=== PATIENT | female | born 1945 | race Caucasian/White ===

== ENCOUNTER 2018-02-17 13:58 | Observation (INO) | payer MEDICARE, BC ==
--- NOTE | 2018-02-17 14:15 | EDM.PDOC ---
ED HPI GENERAL MEDICAL PROBLEM - General Chief Complaint: Neuro Symptoms/Deficits Stated Complaint: [facility] Time Seen by Provider: 02/17/18 13:58 Source of Information: Reports: Patient, EMS History Limitations: Reports: No Limitations - History of Present Illness INITIAL COMMENTS - FREE TEXT/NARRATIVE: The patient is brought by EMS. 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 She denies weakness to either extremity. When she reported to EMS, they felt that the patient had a right facial droop, however, the patient was unaware of any facial abnormality. The patient denies having difficulty in speaking, and EMS did not report that, either. The patient reports having a headache on the left side of her head this morning, which she thought might be sinus related and has largely resolved, and also reports that she developed nausea around the same time that she had the right sided heaviness, around 13:00. EMS gave 4 mg Zofran en route. No other medications were given, and the patient's symptoms largely resolved by the time she arrived to the ED at 13:58. No prior similar symptoms. The patient's PCP is Dr. Black. - Related Data Allergies Allergy/AdvReac Type Severity Reaction Status Date / Time cephalexin [Cephalexin] Allergy Hives Verified 02/17/18 14:07 clindamycin Allergy Hives Verified 02/17/18 14:07 Sulfa (Sulfonamide Allergy Hives Verified 02/17/18 14:07 Antibiotics) Home Meds: Home Meds Thyroid,Pork [Nature-Throid] 65 mg PO DAILY 07/08/16 [History] Past Medical History Musculoskeletal History: Reports: Osteoarthritis Endocrine/Metabolic History: Reports: Hypothyroidism - Past Surgical History HEENT Surgical History: Reports: Tonsillectomy GI Surgical History: Reports: Cholecystectomy Female Surgical History: Reports: D&C (x 1) Musculoskeletal Surgical History: Reports: Knee Replacement (bilateral) Dermatological Surgical History: Reports: Other (See Below) (Lipoma excised from back) Social & Family History - Family History Cardiac: Reports: [place] Other Cardiac Family History: dad from a heart attack at 80 years - Tobacco Use Smoking Status *Q: Never Smoker - Caffeine Use Caffeine Use: Reports: None - Alcohol Use Alcohol Use History: No - Recreational Drug Use Recreational Drug Use: No - Living Situation & Occupation Living situation: Reports: , with Spouse 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 ED EXAM, NEURO - Physical Exam Exam: See Below Exam Limited By: No Limitations General Appearance: Alert, WD/WN, No Apparent Distress Eye Exam: Bilateral Eye: EOMI, Normal Inspection, PERRL Ears: Normal External Exam, Hearing Grossly Normal Nose: Normal Inspection, No Blood Throat/Mouth: Normal Inspection, Normal Lips, Normal Teeth, Normal Gums, Normal Oropharynx, Normal Voice, No Airway Compromise Head Exam: Atraumatic, Normocephalic Neck: Normal Inspection, Full Range of Motion Respiratory/Chest: No Respiratory Distress, Lungs Clear, Normal Breath Sounds, No Accessory Muscle Use Cardiovascular: Normal Peripheral Pulses, Regular Rate, Rhythm, No Edema, No Gallop, No JVD, No Murmur, No Rub GI/Abdominal: Normal Bowel Sounds, Soft, Non-Tender, No Organomegaly, No Distention, No Abnormal Bruit, No Mass (Female) Exam: Deferred Rectal (Female) Exam: Deferred Neurological: Alert, Normal Dorsiflexion, CN II-XII Intact, Normal Plantar Flexion, Normal Gait (when asked to ambulate the halls), No Motor/Sensory Deficits, Oriented x 3 Back Exam: Normal Inspection, Full Range of Motion, NT Extremities: Normal Inspection, Normal Range of Motion, No Pedal Edema, Normal Capillary Refill Psychiatric: Normal Affect Skin Exam: Warm, Dry, Intact, Normal Color, No Rash EKG INTERPRETATION EKG Date: 02/17/18 Time: 14:16 Rhythm: NSR Rate (Beats/Min): 82 [place]: Normal P-Wave: Present QRS: Normal ST-T: Normal QT: Normal Comparison: No Change (07/08/2016) Course - Vital Signs Last Recorded V/S: Last Vital Signs Temp 36.9 C 02/17/18 14:01 Pulse 85 02/17/18 14:01 Resp 18 02/17/18 14:01 BP 145/90 H 02/17/18 14:01 Pulse Ox 98 02/17/18 14:01 - Orders/Labs/Meds Orders: Active Orders 24 hr Category Date Time Status Accu Check [Blood Glucose Check, Bedside] [RC] ONETIME Care 02/17/18 14:08 Active EKG Documentation Completion [RC] STAT Care 02/17/18 14:09 Active Labs: Laboratory Tests 02/17/18 02/17/18 02/17/18 Range/Units 14:02 14:12 14:12 WBC 4.08 (3.98-10.04) K/mm3 RBC 5.09 (3.98-5.22) M/mm3 Hgb 14.2 (11.2-15.7) gm/L Hct 44.4 (34.1-44.9) % MCV 87.2 (79.4-94.8) fl MCH 27.9 (25.6-32.2) pg MCHC 32.0 L (32.2-35.5) g/dl RDW Std Deviation 45.2 (36.4-46.3) fL Plt Count 191 (182-369) K/mm3 MPV 8.7 L (9.4-12.3) fl Neutrophils % (Manual) 56 (40-60) % Band Neutrophils % 0 (0-10) % Lymphocytes % (Manual) 28 (20-40) % Atypical Lymphs % 5 % Monocytes % (Manual) 11 H (2-10) % Eosinophils % (Manual) 0 L (0.7-5.8) % Basophils % (Manual) 0 L (0.1-1.2) Platelet Estimate Adequate Plt Morphology Comment Normal RBC Morph Comment Normal PT (9.5-12.1) SECONDS INR APTT (24-31) SECONDS Sodium 145 (136-145) mEq/L Potassium 4.3 (3.5-5.1) mEq/L Chloride 110 H (98-107) mEq/L Carbon Dioxide 26 (21-32) mEq/L Anion Gap 13.3 (5-15) BUN 19 H (7-18) mg/dL Creatinine 0.7 (0.55-1.02) mg/dL Est Cr Clr Drug Dosing TNP Estimated GFR (MDRD) > 60 (>60) mL/min BUN/Creatinine Ratio 27.1 H (14-18) Glucose 101 (83-115) mg/dL POC Glucose 90 (83-110) mg/dL Calcium 8.8 (8.5-10.1) mg/dL Total Bilirubin 0.9 (0.2-1.0) mg/dL AST 20 (15-37) U/L ALT 25 (14-59) U/L Alkaline Phosphatase 53 (46-116) U/L Total Protein 6.2 L (6.4-8.2) g/dl Albumin 3.6 (3.4-5.0) g/dl Globulin 2.6 gm/dL Albumin/Globulin Ratio 1.4 (1-2) // Range/Units 14:12 WBC (3.98-10.04) K/mm3 RBC (3.98-5.22) M/mm3 Hgb (11.2-15.7) gm/L Hct (34.1-44.9) % MCV (79.4-94.8) fl MCH (25.6-32.2) pg MCHC (32.2-35.5) g/dl RDW Std Deviation (36.4-46.3) fL Plt Count (182-369) K/mm3 MPV (9.4-12.3) fl Neutrophils % (Manual) (40-60) % Band Neutrophils % (0-10) % Lymphocytes % (Manual) (20-40) % Atypical Lymphs % % Monocytes % (Manual) (2-10) % Eosinophils % (Manual) (0.7-5.8) % Basophils % (Manual) (0.1-1.2) Platelet Estimate Plt Morphology Comment RBC Morph Comment PT 10.7 (9.5-12.1) SECONDS INR 0.98 APTT 28 (24-31) SECONDS Sodium (136-145) mEq/L Potassium (3.5-5.1) mEq/L Chloride (98-107) mEq/L Carbon Dioxide (21-32) mEq/L Anion Gap (5-15) BUN (7-18) mg/dL Creatinine (0.55-1.02) mg/dL Est Cr Clr Drug Dosing Estimated GFR (MDRD) (>60) mL/min BUN/Creatinine Ratio (14-18) Glucose (83-115) mg/dL POC Glucose (83-110) mg/dL Calcium (8.5-10.1) mg/dL Total Bilirubin (0.2-1.0) mg/dL AST (15-37) U/L ALT (14-59) U/L Alkaline Phosphatase (46-116) U/L Total Protein (6.4-8.2) g/dl Albumin (3.4-5.0) g/dl Globulin gm/dL Albumin/Globulin Ratio (1-2) Meds: Medications Discontinued Medications Generic Name Dose Route Start Last Admin Trade Name Vikas PRN Reason Stop Dose Admin Aspirin 81 mg 02/17/18 14:41 02/17/18 14:52 Aspirin PO 02/17/18 14:42 81 mg ONETIME ONE Administration - Re-Assessments/Exams Free Text/Narrative Re-Assessment/Exam: 02/17/18 14:27 CT of the head without contrast is read by Dr. Santizo as: 1. Mild senescent change as described above. No acute abnormality is appreciated on noncontrast head CT study. 02/17/18 14:[address] images have been pushed to [facility]. 02/17/18 15:00 Our RN's calculated the patient's NIH stroke score as 1, for RLE leg drift. Case discussed with [facility] One Call at 14:34. Case then discussed with Dr. Sampson, Stroke-Neurologist at [facility], at 14: 38. The fact that the patient had a headache raises a suspicion that the patient 's episode is due to a migraine, however, he recommends conservative management with treating the patient as if she had a TIA. He does not recommend TPA, as the patient is currently asymptomatic. He recommends, however, that we start the patient on a baby aspirin, and admit her for a MRA of the head and neck, a MRI of the head, an echocardiogram, telemetry, and check lipids and a hemoglobin A1c. He does not feel that she needs to be transported to [place]. The above was relayed to the patient and her family. The patient expressed some concern about the MRI, as she is claustrophobic, but agreed to being admitted. Case then discussed with Dr. Schwartz at 14:53. He accepts the patient for observation. Departure - Departure Time of Disposition: 14:55 Disposition: Refer to Observation Condition: Good Clinical Impression: Transient ischemic attack - Discharge Information - My Orders Last 24 Hours: My Active Orders 02/17/18 14:08 Accu Check [Blood Glucose Check, Bedside] [RC] ONETIME 02/17/18 14:09 EKG Documentation Completion [RC] STAT - Assessment/Plan Last 24 Hours: My Active Orders 02/17/18 14:08 Accu Check [Blood Glucose Check, Bedside] [RC] ONETIME 02/17/18 14:09 EKG Documentation Completion [RC] STAT
--- NOTE | 2018-02-17 14:23 | CT ---
Head CT Technique: Multiple axial sections through the brain were obtained. Intravenous contrast was not utilized. Comparison: No prior intracranial imaging is available. Findings: Ventricles along the basal cisterns and sulci over convexities are within normal limits for the patient's age. Very minimal areas of diminished density is noted within periventricular white matter compatible with small vessel ischemic demyelination change. No other abnormal parenchymal densities are seen. No evidence of intracranial hemorrhage. No midline shift or mass effect is seen. Bone window settings were reviewed which shows no acute calvarial abnormality. Visualized sinuses are clear. Impression: 1. Mild senescent change as described above. No acute abnormality is appreciated on noncontrast head CT study. Diagnostic code #2
[2018-02-17] MEDS ORDERED: Aspirin 81 MG Tab.Chew PO ONE (14:41)
--- NOTE | 2018-02-17 16:46 | PCM.HP ---
H&P History of Present Illness - General Date of Service: 02/17/18 Admit Problem/Dx: Admission Diagnosis/Problem Admission Diagnosis/Problem TIA, Transient ischemic attack Source of Information: Patient, Family, Old Records, Provider History Limitations: Reports: No Limitations - History of Present Illness Initial Comments - Free Text/Narative: HPI: This is a 73 yo female with past medical h/o hypothyroidism who comes in for possible TIA. She had a "heavy sensation" in the right upper and lower extremities, possible right facial droop per EMS, and left-sided headache with nausea. Currently she reports no weakness, headache, nausea, vomiting, chest pain, shortness of breath, or GI/ complaints. Never a smoker. Her symptoms improved after receiving Zofran in the ambulance on her way to the ED. Her initial workup in the ED showed an unremarkable CBC. Her coagulation study shows PT of 10.7, INR of 0.98, APTT of 28. Her chemistry is remarkable for Cl 110, BUN 19, Total Protein 6.2. EKG was normal. CT of the head showed mild senescent change, no acute abnormality. She is subsequently admitted to the medical floor. She is a full code. Her PCP is Dr. Bentley Black. - Related Data Allergies/Adverse Reactions: Allergies Allergy/AdvReac Type Severity Reaction Status Date / Time cephalexin [Cephalexin] Allergy Hives Verified 02/17/18 14:07 clindamycin Allergy Hives Verified 02/17/18 14:07 Sulfa (Sulfonamide Allergy Hives Verified 02/17/18 14:07 Antibiotics) Home Medications: Home Meds Thyroid,Pork [Nature-Throid] 65 mg PO DAILY 07/08/16 [History] Past Medical History - Past Health History Medical/Surgical History: Denies Medical/Surgical History Cardiovascular History: Reports: None Respiratory History: Reports: None Gastrointestinal History: Reports: None Genitourinary History: Reports: None SENIOR INFORMATION SECURITY 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 History: Reports: None Musculoskeletal History: Reports: Osteoarthritis Neurological History: Reports: None Psychiatric History: Reports: None Endocrine/Metabolic History: Reports: Hypothyroidism Hematologic History: Reports: None Immunologic History: Reports: None Oncologic (Cancer) History: Reports: None Dermatologic History: Reports: None - Infectious Disease History Infectious Disease History: Reports: None - Past Surgical History HEENT Surgical History: Reports: Tonsillectomy GI Surgical History: Reports: Cholecystectomy Female Surgical History: Reports: D&C (x 1) Musculoskeletal Surgical History: Reports: Knee Replacement (bilateral) Dermatological Surgical History: Reports: Other (See Below) (Lipoma excised from back) Social & Family History - Family History Cardiac: Reports: [place] Other Cardiac Family History: dad from a heart attack at 80 years - Tobacco Use Smoking Status *Q: Never Smoker - Caffeine Use Caffeine Use: Reports: None - Recreational Drug Use Recreational Drug Use: No - Living Situation & Occupation Living situation: Reports: , with Spouse Occupation: Employed ([employer]) H&P Review of Systems - Review of Systems: Review Of Systems: See Below General: Reports: No Symptoms. Denies: Weakness HEENT: Reports: No Symptoms. Denies: Visual Changes Pulmonary: Reports: No Symptoms. Denies: Shortness of Breath Cardiovascular: Reports: Edema (minor swelling in bilateral extremities). Denies: Chest Pain, Palpitations, Lightheadedness, Syncope, Claudication, Blood Pressure Problem Gastrointestinal: Reports: No Symptoms. Denies: Difficulty Swallowing, Nausea, Vomiting Genitourinary: Reports: No Symptoms Musculoskeletal: Reports: No Symptoms, Leg Pain (Right leg x 3 days) Skin: Reports: No Symptoms, Other (varicose vein on Right leg) Psychiatric: Reports: No Symptoms. Denies: Confusion Neurological: Reports: No Symptoms. Denies: Confusion, Dizziness, Headache, Numbness, Paresthesia, Syncope, Trouble Speaking, Weakness, Change in Speech, Gait Disturbance Hematologic/Lymphatic: Reports: No Symptoms Immunologic: Reports: No Symptoms Exam - Exam Exam: See Below - Vital Signs Vital Signs: Last Vital Signs Temp 97.5 F 02/17/18 15:58 Pulse 77 02/17/18 15:58 Resp 16 02/17/18 15:58 BP 147/92 H 02/17/18 15:58 Pulse Ox 98 02/17/18 15:58 Weight: 191 lb 14.4 oz - Exam Quality Assessment: DVT Prophylaxis General: Alert, Oriented, Cooperative, Mild Distress HEENT: PERRLA, Hearing Intact, Mucosa Moist & [place], Nares Patent, Normal Nasal Septum, Posterior Pharynx Clear, Conjunctiva Clear, EOMI, EACs Clear, TMs Clear Neck: Supple, Trachea Midline, 2 Lungs: Clear to Auscultation, Normal Respiratory Effort Cardiovascular: Regular Rate, Regular Rhythm GI/Abdominal Exam: Normal Bowel Sounds, Soft, Non-Tender, No Organomegaly, No Distention, No Abnormal Bruit, No Mass, Pelvis Stable (Female) Exam: Deferred Rectal (Female) Exam: Deferred Back Exam: Normal Inspection, Full Range of Motion, NT Extremities: Normal Inspection, Normal Range of Motion, Non-Tender, Normal Capillary Refill, Pedal Edema (1+ bilaterally), Other (varicose vein on Right leg) Peripheral Pulses: 3+: Posterior Tibial (L), Posterior Tibial (R), Dorsalis Pedis (L), Dorsalis Pedis (R) Skin: Warm, Dry, Intact Neurological: Cranial Nerves Intact (grossly), Strength Equal Bilateral, Normal Gait, Normal Speech, Sensation Intact Neuro Extensive - Mental Status: Alert, Oriented x3, Normal Mood/Affect, Normal Cognition, Memory Intact Neuro Extensive - Motor, Sensory, Reflexes: CN II-XII Intact, Normal Gait, Normal Reflexes Psychiatric: Alert, Normal Affect, Normal Mood - Patient Data Lab Results Last 24 hrs: Laboratory Results - last 24 hr 02/17/18 02/17/18 02/17/18 Range/Units 14:02 14:12 14:12 WBC 4.08 (3.98-10.04) K/mm3 RBC 5.09 (3.98-5.22) M/mm3 Hgb 14.2 (11.2-15.7) gm/L Hct 44.4 (34.1-44.9) % MCV 87.2 (79.4-94.8) fl MCH 27.9 (25.6-32.2) pg MCHC 32.0 L (32.2-35.5) g/dl RDW Std Deviation 45.2 (36.4-46.3) fL Plt Count 191 (182-369) K/mm3 MPV 8.7 L (9.4-12.3) fl Neutrophils % (Manual) 56 (40-60) % Band Neutrophils % 0 (0-10) % Lymphocytes % (Manual) 28 (20-40) % Atypical Lymphs % 5 % Monocytes % (Manual) 11 H (2-10) % Eosinophils % (Manual) 0 L (0.7-5.8) % Basophils % (Manual) 0 L (0.1-1.2) Platelet Estimate Adequate Plt Morphology Comment Normal RBC Morph Comment Normal PT (9.5-12.1) SECONDS INR APTT (24-31) SECONDS Sodium 145 (136-145) mEq/L Potassium 4.3 (3.5-5.1) mEq/L Chloride 110 H (98-107) mEq/L Carbon Dioxide 26 (21-32) mEq/L Anion Gap 13.3 (5-15) BUN 19 H (7-18) mg/dL Creatinine 0.7 (0.55-1.02) mg/dL Est Cr Clr Drug Dosing TNP Estimated GFR (MDRD) > 60 (>60) mL/min BUN/Creatinine Ratio 27.1 H (14-18) Glucose 101 (83-115) mg/dL POC Glucose 90 (83-110) mg/dL Calcium 8.8 (8.5-10.1) mg/dL Total Bilirubin 0.9 (0.2-1.0) mg/dL AST 20 (15-37) U/L ALT 25 (14-59) U/L Alkaline Phosphatase 53 (46-116) U/L Total Protein 6.2 L (6.4-8.2) g/dl Albumin 3.6 (3.4-5.0) g/dl Globulin 2.6 gm/dL Albumin/Globulin Ratio 1.4 (1-2) // Range/Units 14:12 WBC (3.98-10.04) K/mm3 RBC (3.98-5.22) M/mm3 Hgb (11.2-15.7) gm/L Hct (34.1-44.9) % MCV (79.4-94.8) fl MCH (25.6-32.2) pg MCHC (32.2-35.5) g/dl RDW Std Deviation (36.4-46.3) fL Plt Count (182-369) K/mm3 MPV (9.4-12.3) fl Neutrophils % (Manual) (40-60) % Band Neutrophils % (0-10) % Lymphocytes % (Manual) (20-40) % Atypical Lymphs % % Monocytes % (Manual) (2-10) % Eosinophils % (Manual) (0.7-5.8) % Basophils % (Manual) (0.1-1.2) Platelet Estimate Plt Morphology Comment RBC Morph Comment PT 10.7 (9.5-12.1) SECONDS INR 0.98 APTT 28 (24-31) SECONDS Sodium (136-145) mEq/L Potassium (3.5-5.1) mEq/L Chloride (98-107) mEq/L Carbon Dioxide (21-32) mEq/L Anion Gap (5-15) BUN (7-18) mg/dL Creatinine (0.55-1.02) mg/dL Est Cr Clr Drug Dosing Estimated GFR (MDRD) (>60) mL/min BUN/Creatinine Ratio (14-18) Glucose (83-115) mg/dL POC Glucose (83-110) mg/dL Calcium (8.5-10.1) mg/dL Total Bilirubin (0.2-1.0) mg/dL AST (15-37) U/L ALT (14-59) U/L Alkaline Phosphatase (46-116) U/L Total Protein (6.4-8.2) g/dl Albumin (3.4-5.0) g/dl Globulin gm/dL Albumin/Globulin Ratio (1-2) Result Diagrams: 02/17/18 14:12 02/17/18 14:12 - Problem List (1) Transient ischemic attack SNOMED Code(s): 196148254 ICD Code: G45.9 - TRANSIENT CEREBRAL ISCHEMIC ATTACK, UNSPECIFIED Status: Acute Priority: High Current Visit: Yes Qualifiers: Transient cerebral ischemia type: unspecified Qualified Code(s): G45.9 - Transient cerebral ischemic attack, unspecified (2) Hypothyroidism SNOMED Code(s): 24525429 ICD Code: E03.9 - HYPOTHYROIDISM, UNSPECIFIED Status: Chronic Priority: Low Current Visit: Yes Qualifiers: Hypothyroidism type: unspecified Qualified Code(s): E03.9 - Hypothyroidism , unspecified (3) Venous insufficiency of lower extremity SNOMED Code(s): 379053132 ICD Code: I87.2 - VENOUS INSUFFICIENCY (CHRONIC) (PERIPHERAL) Status: Chronic Priority: Low Current Visit: Yes Qualifiers: Laterality: unspecified laterality Qualified Code(s): I87.2 - Venous insufficiency (chronic) (peripheral) Problem List Initiated/Reviewed/Updated: Yes Orders Last 24hrs: Active Orders 24 hr Category Date Time Status Admission Status [Patient Status] [ADT] Routine ADT 02/17/18 15:37 Active Accu Check [Blood Glucose Check, Bedside] [RC] ONETIME Care 02/17/18 14:08 Active EKG Documentation Completion [RC] STAT Care 02/17/18 14:09 Active Regular Diet [DIET] Diet 02/17/18 Dinner Active Code Status [Resuscitation Status] Routine Resus Stat 02/17/18 16:05 Ordered Assessment/Plan Comment:: I/P: Acute: Suspected TIA -Risk factors: HTN in ED (147/) -1st episode, "heavy sensation" in RUE + RLE, possible R facial droop per EMS , nausea, L sided headache -Symptoms resolved <1 hour -NIH score 0; ABCD2 score 5= moderate risk of stroke -EKG in ED--> normal -CT Head in ED--> mild senescent change, no acute abnormality -Cardiac Monitoring to r/o Afib -2D echo in AM -MRI and MRA of head and neck -Lipid panel -ASA 81mg started in ED--> continue -Consider statin if lipids elevated Chronic: Venous Insufficiency -Varicose vein on right leg Hypothyroidism Osteoarthritis Plan: Transfered to Med-Surg today on telemetry She remains stable and continues to improve clinically Other orders as indicated above Routine AM labs Heart Healthy Diet PT/OT DVT Prophylaxis: ASA, MAGO, SCD GI Prophylaxis: Pepcid Ambulated as tolerated Code Status: Full code; PCP: Sofia
[2018-02-17] MEDS ORDERED: HYDROmorphone 0.5 MG/0.5 ML SYRINGE IVPUSH PRN (17:13)
[2018-02-17] MEDS ORDERED: Magnesium Hydroxide 400 MG/5 ML Susp 30 ML Cup PO PRN (17:13)
[2018-02-17] MEDS ORDERED: Ondansetron 4 MG Tab.DIS PO PRN (17:13)
[2018-02-17] MEDS ORDERED: Ondansetron 4 MG/2 ML SDV IV PRN (17:13)
[2018-02-17] MEDS ORDERED: Acetaminophen 325 MG Tab PO PRN (17:13)
[2018-02-17] MEDS ORDERED: Acetaminophen/HYDROcodone 325-5 MG Tab PO PRN (17:13)
[2018-02-17] MEDS ORDERED: Bisacodyl 5 MG Tab PO PRN (17:13)
[2018-02-17] MEDS ORDERED: Temazepam 7.5 MG Cap PO PRN (17:13)
[2018-02-17] MEDS ORDERED: Polyethylene Glycol 3350 Powder 17 GM Packet PO PRN (17:13)
[2018-02-17] MEDS ORDERED: Docusate Sodium 100 MG Cap PO PRN (17:13)
[2018-02-18] MEDS ORDERED: Sodium Chloride 0.9% 500 ML IV ONE ×2 (07:30→08:00)
[2018-02-18] MEDS ORDERED: Aspirin 81 MG Tab.Chew PO SCH (09:00)
[2018-02-18] MEDS ORDERED: Thyroid 60 MG Tab PO SCH (09:00)
[2018-02-18] MEDS ORDERED: NATURE THROID 65 MG PO SCH (09:00)
[2018-02-18] MEDS ORDERED: Sodium Chloride 0.9% 10 ML Syringe FLUSH PRN (10:45)
[2018-02-18] MEDS ORDERED: Gadobenate Dimeglumine 529 MG/ML 20 ML SDV IVPUSH ONE (10:45)
--- NOTE | 2018-02-18 11:47 | PCM.PN ---
- General Info Date of Service: 02/18/18 Admission Dx/Problem (Free Text): Admission Diagnosis/Problem Admission Diagnosis/Problem TIA, Transient ischemic attack Subjective Update: In to see Monica today. She is sitting up in bed eating breakfast. Overall she is doing quite well. I explained that her labs are looking good so far and that we are now just waiting for her imaging results. She does complain of some right ear pain and jaw pain. Troponin was negative. I checked her ear with an otoscope and reassured her the ear looked normal. I also palpated her jaw and she had no pain, but was tender to palpation on her submandibular lymph nodes. However, the lymph nodes are not swollen at this time. She has been sleeping well. Good appetite. Ambulating. Pain is controlled. No weakness, dizziness, confusion, headache, nausea or vomiting. Urinating. No concerns from nursing. She will most likely be DCd back home tomorrow pending MRI and MRA results, PT/ OT recommendation, and clinical disposition. Functional Status: Reports: Pain Controlled, Tolerating Diet, Ambulating, Urinating - Review of Systems General: Reports: No Symptoms. Denies: Fever, Weakness, Chills HEENT: Reports: Ear Pain (right ear), Other (jaw pain). Denies: Headaches, Sore Throat, Visual Changes Pulmonary: Reports: No Symptoms. Denies: Shortness of Breath, Cough Cardiovascular: Reports: Edema (bilateral R>L). Denies: Chest Pain, Palpitations, Dyspnea on Exertion Gastrointestinal: Reports: No Symptoms. Denies: Abdominal Pain, Constipation, Diarrhea, Nausea, Vomiting Genitourinary: Reports: No Symptoms. Denies: Dysuria, Frequency, Burning, Pain , Urgency Musculoskeletal: Reports: No Symptoms. Denies: Leg Pain Skin: Reports: No Symptoms Neurological: Reports: No Symptoms. Denies: Confusion, Dizziness, Headache, Numbness, Paresthesia, Seizure, Syncope, Tingling, Trouble Speaking, Difficulty Walking, Weakness, Change in Speech Psychiatric: Reports: No Symptoms. Denies: Confusion - Patient Data Vitals - Most Recent: Last Vital Signs Temp 98.4 F 02/18/18 08:19 Pulse 73 02/18/18 08:19 Resp 16 02/18/18 08:19 BP 129/88 02/18/18 08:19 Pulse Ox 95 02/18/18 08:19 Weight - Most Recent: 187 lb 14.4 oz I&O - Last 24 Hours: Intake & Output 02/17/18 02/18/18 02/18/18 22:59 06:59 14:59 Intake Total 360 500 120 Output Total 450 Balance 360 50 120 Lab Results Last 24 Hours: Laboratory Results - last 24 hr 02/17/18 02/17/18 02/17/18 Range/Units 14:02 14:12 14:12 WBC 4.08 (3.98-10.04) K/mm3 RBC 5.09 (3.98-5.22) M/mm3 Hgb 14.2 (11.2-15.7) gm/L Hct 44.4 (34.1-44.9) % MCV 87.2 (79.4-94.8) fl MCH 27.9 (25.6-32.2) pg MCHC 32.0 L (32.2-35.5) g/dl RDW Std Deviation 45.2 (36.4-46.3) fL Plt Count 191 (182-369) K/mm3 MPV 8.7 L (9.4-12.3) fl Neut % (Auto) (34.0-71.1) % Lymph % (Auto) (19.3-51.7) % [place] % (Auto) (4.7-12.5) % Eos % (Auto) (0.7-5.8) Baso % (Auto) (0.1-1.2) % Neut # (Auto) (1.56-6.13) K/mm3 Lymph # (Auto) (1.18-3.74) K/mm3 [place] # (Auto) (0.24-0.36) K/mm3 Eos # (Auto) (0.04-0.36) K/mm3 Baso # (Auto) (0.01-0.08) K/mm3 Neutrophils % (Manual) 56 (40-60) % Band Neutrophils % 0 (0-10) % Lymphocytes % (Manual) 28 (20-40) % Atypical Lymphs % 5 % Monocytes % (Manual) 11 H (2-10) % Eosinophils % (Manual) 0 L (0.7-5.8) % Basophils % (Manual) 0 L (0.1-1.2) Platelet Estimate Adequate Plt Morphology Comment Normal RBC Morph Comment Normal PT (9.5-12.1) SECONDS INR APTT (24-31) SECONDS Sodium 145 (136-145) mEq/L Potassium 4.3 (3.5-5.1) mEq/L Chloride 110 H (98-107) mEq/L Carbon Dioxide 26 (21-32) mEq/L Anion Gap 13.3 (5-15) BUN 19 H (7-18) mg/dL Creatinine 0.7 (0.55-1.02) mg/dL Est Cr Clr Drug Dosing TNP Estimated GFR (MDRD) > 60 (>60) mL/min BUN/Creatinine Ratio 27.1 H (14-18) Glucose 101 (83-115) mg/dL POC Glucose 90 (83-110) mg/dL Hemoglobin A1c (4.50-6.20) % Calcium 8.8 (8.5-10.1) mg/dL Magnesium (1.8-2.4) mg/dl Total Bilirubin 0.9 (0.2-1.0) mg/dL AST 20 (15-37) U/L ALT 25 (14-59) U/L Alkaline Phosphatase 53 (46-116) U/L Troponin I (0.00-0.056) ng/mL NT-Pro-B Natriuret Pep (0-125) pg/mL Total Protein 6.2 L (6.4-8.2) g/dl Albumin 3.6 (3.4-5.0) g/dl Globulin 2.6 gm/dL Albumin/Globulin Ratio 1.4 (1-2) Triglycerides (<150) mg/dL Cholesterol (<200) mg/dL LDL Cholesterol Direct (<100) mg/dL HDL Cholesterol (40-59) mg/dL Free T4 (0.76-1.46) ng/dL TSH 3rd Generation (0.358-3.74) uIU/mL 02/17/18 02/17/18 02/18/18 Range/Units 14:12 14:12 06:00 WBC 3.30 L (3.98-10.04) K/mm3 RBC 4.89 (3.98-5.22) M/mm3 Hgb 14.1 (11.2-15.7) gm/L Hct 42.8 (34.1-44.9) % MCV 87.5 (79.4-94.8) fl MCH 28.8 (25.6-32.2) pg MCHC 32.9 (32.2-35.5) g/dl RDW Std Deviation 45.1 (36.4-46.3) fL Plt Count 164 L (182-369) K/mm3 MPV 9.1 L (9.4-12.3) fl Neut % (Auto) 46.7 (34.0-71.1) % Lymph % (Auto) 37.3 (19.3-51.7) % [place] % (Auto) 12.4 (4.7-12.5) % Eos % (Auto) 3.3 (0.7-5.8) Baso % (Auto) 0.3 (0.1-1.2) % Neut # (Auto) 1.54 L (1.56-6.13) K/mm3 Lymph # (Auto) 1.23 (1.18-3.74) K/mm3 [place] # (Auto) 0.41 H (0.24-0.36) K/mm3 Eos # (Auto) 0.11 (0.04-0.36) K/mm3 Baso # (Auto) 0.01 (0.01-0.08) K/mm3 Neutrophils % (Manual) (40-60) % Band Neutrophils % (0-10) % Lymphocytes % (Manual) (20-40) % Atypical Lymphs % % Monocytes % (Manual) (2-10) % Eosinophils % (Manual) (0.7-5.8) % Basophils % (Manual) (0.1-1.2) Platelet Estimate Plt Morphology Comment RBC Morph Comment PT 10.7 (9.5-12.1) SECONDS INR 0.98 APTT 28 (24-31) SECONDS Sodium (136-145) mEq/L Potassium (3.5-5.1) mEq/L Chloride (98-107) mEq/L Carbon Dioxide (21-32) mEq/L Anion Gap (5-15) BUN (7-18) mg/dL Creatinine (0.55-1.02) mg/dL Est Cr Clr Drug Dosing Estimated GFR (MDRD) (>60) mL/min BUN/Creatinine Ratio (14-18) Glucose (83-115) mg/dL POC Glucose (83-110) mg/dL Hemoglobin A1c (4.50-6.20) % Calcium (8.5-10.1) mg/dL Magnesium 2.3 (1.8-2.4) mg/dl Total Bilirubin (0.2-1.0) mg/dL AST (15-37) U/L ALT (14-59) U/L Alkaline Phosphatase (46-116) U/L Troponin I (0.00-0.056) ng/mL NT-Pro-B Natriuret Pep (0-125) pg/mL Total Protein (6.4-8.2) g/dl Albumin (3.4-5.0) g/dl Globulin gm/dL Albumin/Globulin Ratio (1-2) Triglycerides (<150) mg/dL Cholesterol (<200) mg/dL LDL Cholesterol Direct (<100) mg/dL HDL Cholesterol (40-59) mg/dL Free T4 (0.76-1.46) ng/dL TSH 3rd Generation (0.358-3.74) uIU/mL 02/18/18 02/18/18 02/18/18 Range/Units 06:00 06:00 06:00 WBC (3.98-10.04) K/mm3 RBC (3.98-5.22) M/mm3 Hgb (11.2-15.7) gm/L Hct (34.1-44.9) % MCV (79.4-94.8) fl MCH (25.6-32.2) pg MCHC (32.2-35.5) g/dl RDW Std Deviation (36.4-46.3) fL Plt Count (182-369) K/mm3 MPV (9.4-12.3) fl Neut % (Auto) (34.0-71.1) % Lymph % (Auto) (19.3-51.7) % [place] % (Auto) (4.7-12.5) % Eos % (Auto) (0.7-5.8) Baso % (Auto) (0.1-1.2) % Neut # (Auto) (1.56-6.13) K/mm3 Lymph # (Auto) (1.18-3.74) K/mm3 [place] # (Auto) (0.24-0.36) K/mm3 Eos # (Auto) (0.04-0.36) K/mm3 Baso # (Auto) (0.01-0.08) K/mm3 Neutrophils % (Manual) (40-60) % Band Neutrophils % (0-10) % Lymphocytes % (Manual) (20-40) % Atypical Lymphs % % Monocytes % (Manual) (2-10) % Eosinophils % (Manual) (0.7-5.8) % Basophils % (Manual) (0.1-1.2) Platelet Estimate Plt Morphology Comment RBC Morph Comment PT (9.5-12.1) SECONDS INR APTT (24-31) SECONDS Sodium 142 (136-145) mEq/L Potassium 3.7 (3.5-5.1) mEq/L Chloride 110 H (98-107) mEq/L Carbon Dioxide 25 (21-32) mEq/L Anion Gap 10.7 (5-15) BUN 14 (7-18) mg/dL Creatinine 0.8 (0.55-1.02) mg/dL Est Cr Clr Drug Dosing 60.38 Estimated GFR (MDRD) > 60 (>60) mL/min BUN/Creatinine Ratio 17.5 (14-18) Glucose 108 (83-115) mg/dL POC Glucose (83-110) mg/dL Hemoglobin A1c 5.30 (4.50-6.20) % Calcium 8.7 (8.5-10.1) mg/dL Magnesium (1.8-2.4) mg/dl Total Bilirubin (0.2-1.0) mg/dL AST (15-37) U/L ALT (14-59) U/L Alkaline Phosphatase (46-116) U/L Troponin I < 0.017 (0.00-0.056) ng/mL NT-Pro-B Natriuret Pep 72 (0-125) pg/mL Total Protein (6.4-8.2) g/dl Albumin (3.4-5.0) g/dl Globulin gm/dL Albumin/Globulin Ratio (1-2) Triglycerides 43 (<150) mg/dL Cholesterol 162 (<200) mg/dL LDL Cholesterol Direct 102 H* (<100) mg/dL HDL Cholesterol 55.0 (40-59) mg/dL Free T4 0.77 (0.76-1.46) ng/dL TSH 3rd Generation 3.144 (0.358-3.74) uIU/mL Med Orders - Current: Current Medications Acetaminophen (Tylenol) 650 mg PO Q4H PRN PRN Reason: Pain (Mild 1-3)/fever Last Admin: 02/18/18 04:05 Dose: 650 mg Hydrocodone Bitart/Acetaminophen ([place] 325-5 Mg) 1 tab PO Q4H PRN PRN Reason: Pain (moderate 4-6) Aspirin (Aspirin) 81 mg PO DAILY [facility] Last Admin: 02/18/18 08:19 Dose: 81 mg Bisacodyl (Dulcolax) 5 mg PO DAILY PRN PRN Reason: Constipation Docusate Sodium (Colace) 100 mg PO BID PRN PRN Reason: Constipation Hydromorphone HCl (Dilaudid) 0.25 mg IVPUSH Q2H PRN PRN Reason: Pain (severe 7-10) Magnesium Hydroxide (Milk Of Magnesia) 30 ml PO Q12H PRN PRN Reason: Constipation Ondansetron HCl (Zofran Odt) 4 mg PO Q4H PRN PRN Reason: nausea, able to take PO Ondansetron HCl (Zofran) 4 mg IV Q4H PRN PRN Reason: Nausea/Vomiting Nature-Throid 65 Mg 0 each PO DAILY [facility] Last Admin: 02/18/18 08:42 Dose: 1 each Polyethylene Glycol (Miralax) 17 gm PO DAILY PRN PRN Reason: Constipation Senna/Docusate Sodium (Senna Plus) 1 tab PO BID PRN PRN Reason: Constipation Sodium Chloride (Saline Flush) 10 ml FLUSH ONETIME PRN PRN Reason: Keep Vein Open Last Admin: 02/18/18 10:48 Dose: 10 ml Temazepam (Restoril) 7.5 mg PO BEDTIME PRN PRN Reason: Sleep Discontinued Medications Aspirin (Aspirin) 81 mg PO ONETIME ONE Stop: 02/17/18 14:42 Last Admin: 02/17/18 14:52 Dose: 81 mg Gadobenate Dimeglumine (Multihance) 20 ml IVPUSH ONETIME ONE Stop: 02/18/18 10:46 Last Admin: 02/18/18 10:48 Dose: 20 ml Sodium Chloride (Normal Saline) 500 mls @ 999 mls/hr IV ONETIME ONE Stop: 02/18/18 08:00 Sodium Chloride (Normal Saline) 500 mls @ 999 mls/hr IV ONETIME ONE Stop: 02/18/18 08:30 Last Admin: 02/18/18 08:13 Dose: 999 mls/hr Thyroid (Cynthia Thyroid) 60 mg PO DAILY JOSE MARIA - Exam Quality Assessment: DVT Prophylaxis General: Alert, Oriented, Cooperative, No Acute Distress HEENT: Pupils Equal, Pupils Reactive, EOMI, Mucous Membr. Moist/[place], Other ( EAC and TMs clear with no erythema, cone of light visualized) Neck: Supple, Other (right submandibular area TTP). No: Lymphadenopathy Lungs: Clear to Auscultation, Normal Respiratory Effort Cardiovascular: Regular Rate, Regular Rhythm GI/Abdominal Exam: Normal Bowel Sounds, Soft, Non-Tender, No Organomegaly, No Distention, No Abnormal Bruit, No Mass, Pelvis Stable (Female) Exam: Deferred Back Exam: Normal Inspection, Full Range of Motion Extremities: Normal Inspection, Normal Range of Motion, Non-Tender, Normal Capillary Refill, Pedal Edema (1+ bilaterally, varicose vein on right leg). No : Leg Pain Peripheral Pulses: 3+: Posterior Tibial (L), Posterior Tibial (R), Dorsalis Pedis (L), Dorsalis Pedis (R) Skin: Warm, Dry, Intact Neurological: No New Focal Deficit, Normal Speech, Normal Tone, Strength Equal Bilateral, Cranial Nerves Intact (grossly) Psy/Mental Status: Alert, Normal Affect, Normal Mood - Problem List & Annotations (1) Transient ischemic attack SNOMED Code(s): 347023876 Code(s): G45.9 - TRANSIENT CEREBRAL ISCHEMIC ATTACK, UNSPECIFIED Status: Acute Priority: High Current Visit: Yes Qualifiers: Transient cerebral ischemia type: unspecified Qualified Code(s): G45.9 - Transient cerebral ischemic attack, unspecified (2) Hypothyroidism SNOMED Code(s): 34879653 Code(s): E03.9 - HYPOTHYROIDISM, UNSPECIFIED Status: Chronic Priority: Low Current Visit: Yes Qualifiers: Hypothyroidism type: unspecified Qualified Code(s): E03.9 - Hypothyroidism , unspecified (3) Venous insufficiency of lower extremity SNOMED Code(s): 109257638 Code(s): I87.2 - VENOUS INSUFFICIENCY (CHRONIC) (PERIPHERAL) Status: Chronic Priority: Low Current Visit: Yes Qualifiers: Laterality: unspecified laterality Qualified Code(s): I87.2 - Venous insufficiency (chronic) (peripheral) - Problem List Review Problem List Initiated/Reviewed/Updated: Yes - My Orders Last 24 Hours: My Active Orders 02/17/18 17:13 Ambulate [RC] ASDIRECTED Height and Weight [RC] 04 Intake and Output [RC] ,16 January Shower [RC] ASDIRECTED Oxygen Therapy [RC] PRN VTE/DVT Education [RC] DAILY Vital Signs [RC] Q4H OT Evaluation and Treatment [CONS] Routine PT Evaluation and Treatment [CONS] Routine Acetaminophen [Tylenol] 650 mg PO Q4H PRN Acetaminophen/HYDROcodone [[place] 325-5 MG] 1 tab PO Q4H PRN Bisacodyl [Dulcolax] 5 mg PO DAILY PRN Docusate Sodium [Colace] 100 mg PO BID PRN Docusate Sodium/Sennosides [Senna Plus] 1 tab PO BID PRN HYDROmorphone [Dilaudid] 0.25 mg IVPUSH Q2H PRN Magnesium Hydroxide [Milk of Magnesia] 30 ml PO Q12H PRN Ondansetron [Zofran ODT] 4 mg PO Q4H PRN Ondansetron [Zofran] 4 mg IV Q4H PRN Polyethylene Glycol 3350 [MiraLAX] 17 gm PO DAILY PRN Temazepam [Restoril] 7.5 mg PO BEDTIME PRN 02/17/18 17:14 Antiembolic Hose [OM.PC] Per Unit Routine Sequential Compression Device [OM.PC] Per Unit Routine 02/18/18 09:00 Patient's Own Medication [Ptom] 0 each PO DAILY 02/18/18 17:22 Echo Comp wo Cont [US] Routine 02/18/18 Breakfast Heart Healthy Diet [DIET] 02/19/18 05:11 BASIC METABOLIC PANEL,BMP [CHEM] AM CBC WITH AUTO DIFF [HEME] AM 02/20/18 05:11 BASIC METABOLIC PANEL,BMP [CHEM] AM CBC WITH AUTO DIFF [HEME] AM - Plan Plan:: I/P: Acute: Suspected TIA -Risk factors: HTN in ED (147/92)--> improved now; no prior history of HTN per pt -1st episode, "heavy sensation" in RUE + RLE, possible R facial droop per EMS , nausea, L sided headache (no aura) -Symptoms resolved <1 hour -NIH score 0; ABCD2 score 5= moderate risk of stroke -EKG in ED--> normal -CT Head in ED--> mild senescent change, no acute abnormality -Cardiac Monitoring to r/o Afib -2D echo in AM--> forward results to PCP -MRI and MRA of head and neck--> results pending -Lipid panel--> normal levels, LDL slightly elevated at 102; do not recommend statin at this time -ASA 81mg started in ED--> continue -PT/OT consult Chronic: Venous Insufficiency -1+ edema bilaterally -Varicose vein on right leg -BNP negative -Recommend compression stockings at home Hypothyroidism Osteoarthritis Plan: Transfered to Med-Surg today on telemetry She remains stable and continues to improve clinically Other orders as indicated above Routine AM labs Heart Healthy Diet PT/OT DVT Prophylaxis: ASA, MAGO, SCD GI Prophylaxis: Pepcid Ambulated as tolerated Code Status: Full code; PCP: Sofia Most likely D/C home tomorrow pending imaging results, PT/OT recommendation and clinical disposition
[2018-02-18 13:13] VITALS: BP 124/82
--- NOTE | 2018-02-18 14:20 | PCM.DCSUM1 ---
Discharge Summary - Hospital Course HPI Initial Comments: The patient is brought by EMS. 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 She denies weakness to either extremity. When she reported to EMS, they felt that the patient had a right facial droop, however, the patient was unaware of any facial abnormality. The patient denies having difficulty in speaking, and EMS did not report that, either. The patient reports having a headache on the left side of her head this morning, which she thought might be sinus related and has largely resolved, and also reports that she developed nausea around the same time that she had the right sided heaviness, around 13:00. EMS gave 4 mg Zofran en route. No other medications were given, and the patient's symptoms largely resolved by the time she arrived to the ED at 13:58. No prior similar symptoms. The patient's PCP is Dr. Black. - Discharge Data Discharge Date: 02/18/18 (ADMIT ) Discharge Disposition: Home, Self-Care 01 Condition: Good - Discharge Diagnosis/Problem(s) (1) CVA (cerebral vascular accident) SNOMED Code(s): 780216262 ICD Code: I63.9 - CEREBRAL INFARCTION, UNSPECIFIED Status: Acute Priority : High Current Visit: Yes Qualifiers: CVA mechanism: unspecified Qualified Code(s): I63.9 - Cerebral infarction, unspecified (2) Hypothyroidism SNOMED Code(s): 95207820 ICD Code: E03.9 - HYPOTHYROIDISM, UNSPECIFIED Status: Chronic Priority: Low Current Visit: Yes Qualifiers: Hypothyroidism type: unspecified Qualified Code(s): E03.9 - Hypothyroidism , unspecified (3) Venous insufficiency of lower extremity SNOMED Code(s): 436763496 ICD Code: I87.2 - VENOUS INSUFFICIENCY (CHRONIC) (PERIPHERAL) Status: Chronic Priority: Low Current Visit: Yes Qualifiers: Laterality: unspecified laterality Qualified Code(s): I87.2 - Venous insufficiency (chronic) (peripheral) - Patient Summary/Data Operative Procedure(s) Performed: none Complications: none Consults: Consultations 02/17/18 17:13 OT Evaluation and Treatment [CONS] Routine PT Evaluation and Treatment [CONS] Routine Labs Pending at D/C: none Recommended Follow-up Testing/Procedures: Follow up with Primary Care Provider, Dr. Black, in 7-10 days: -May want to consider a statin- currently not prescribing as lipid levels were normal here, with the LDL only being slightly elevated at 102 -Future refills for Aspirin 81mg -May want to consider compression socks for chronic venous insufficiency -Recheck blood pressure and lipid levels with your PCP in the future. Wear Holter monitor x48 hours to rule out Atrial Fibrillation as a possible cause of CVA. Planned Operative Procedure(s) after DC: none Hospital Course: I/P: Acute: CVA -R/O TIA--> per pt, has new-onset mild right-sided leg weakness that hasn't gone away; acute infarct on MRI -Risk factors: HTN in ED ()--> improved now; no prior history of HTN per pt -1st episode, "heavy sensation" in RUE + RLE, possible R facial droop per EMS , nausea, L sided headache (no aura) -Symptoms resolved <1 hour -NIH score 0; ABCD2 score 5= moderate risk of stroke -EKG in ED--> normal -CT Head in ED--> mild senescent change, no acute abnormality -Cardiac Monitoring to r/o Afib -2D echo--> normal; LVEF 60-65% -MRI head--> 4mm acute infarct in left posterior frontal centrum semi-ovale -MRA of head and neck--> normal findings -Lipid panel--> normal levels, LDL slightly elevated at 102; do not recommend statin at this time -ASA 81mg started in ED--> continue -PT/OT consult -Holter Monitor at home x48 hours -Recommend Fish oil for lipid control -ERNIE SCALE: 1 Chronic: Venous Insufficiency -1+ edema bilaterally -Varicose vein on right leg -BNP negative -Recommend compression stockings at home Hypothyroidism Osteoarthritis Plan: Transfered to Med-Surg today on telemetry She remains stable and continues to improve clinically Other orders as indicated above Routine AM labs Heart Healthy Diet PT/OT DVT Prophylaxis: ASA, MAGO, SCD GI Prophylaxis: Pepcid Ambulated as tolerated Code Status: Full code; PCP: Sofia D/C home today Monica has recovered quite well after being admitted for TIA/possible CVA. She had multiple tests done. So far all have been negative except for MRI of the head showed 4mm acute infarct in left posterior frontal centrum semi-ovale. She is also complaining of new-onset mild right-sided leg weakness, which leads us to believe this is more of a CVA than a TIA. We have yet to find a cause for this CVA, so she was sent home on a Holter Monitor x48 hours to r/o paroxysmal Afib as a possible cause of her CVA. She should follow-up with her primary care provider in 7-10 days. She was discharged with ASA 81mg x30 days and should f/u with her PCP for future prescription. She was not sent home on a statin from the hospital as her lipid levels were normal here, with the LDL only being slightly elevated at 102. Recommended she could try fish oil if she would like. This can be worked up further by her PCP and they can discuss the possibility of being started on a statin at that time. Her blood pressure was also slightly elevated while here and should be rechecked with her PCP. She was also noted to have chronic venous insufficiency with 1+ pitting edema and varicose vein on the right leg- recommended using compression socks at home. This can be worked up further by her PCP. She will be discharged home today. - Patient Instructions Diet: Heart Healthy Diet Activity: As Tolerated Driving: Do Not Drive Showering/Bathing: May Shower Other/Special Instructions: Return to ED if return of symptoms or increased weakness - Discharge Plan Prescriptions/Med Rec: Aspirin 81 mg PO DAILY #30 tab.chew Home Medications: Home Meds Thyroid,Pork [Nature-Throid] 65 mg PO DAILY 07/08/16 [History] Aspirin 81 mg PO DAILY #30 tab.chew 02/18/18 [Rx] Patient Handouts: Stroke Prevention, [id number], Ischemic Stroke, Easy-to- Read, Aspirin and Your Heart Referrals: Bentley Black MD [Primary Care Provider] - 02/22/18 8:10 am (Please follow- up with your primary care doctor, Dr. Black, on ThursdayFebruary 22 at 0810am. Please arrive 15 minutes early to get registered. ) - Discharge Summary/Plan Comment DC Time >30 min.: Yes (40) - General Info Date of Service: 02/18/18 Admission Dx/Problem (Free Text: Admission Diagnosis/Problem Admission Diagnosis/Problem TIA, Transient ischemic attack Subjective Update: In to see Monica today. She is sitting up in bed eating. Overall she is doing quite well. I explained that her labs are looking good so far, the MRA of the head and neck had normal results, the ECHO was normal, but the MRI did show a 4mm acute infarct. She is also complaining of new onset mild right-sided leg weakness, which makes us believe this is more of a CVA than TIA. I explained this to her and she states she understands. We will send her home with a holter monitor since we have not found a cause and she can f/u with her PCP Dr. Black. She also complained of some right ear pain and jaw pain. Troponin was negative. I checked her ear with an otoscope and reassured her the ear looked normal. I also palpated her jaw and she had no pain, but was tender to palpation on her submandibular lymph nodes. However, the lymph nodes are not swollen at this time. She has been sleeping well. Good appetite. Ambulating. Pain is controlled. No weakness, dizziness, confusion, headache, nausea or vomiting. Urinating. No concerns from nursing. She will be DCd back home today with Holter Monitor x48 hours. She will be sent home on ASA 81mg, but no statin as her lipid levels were normal here, with the LDL only being slightly elevated at 102. Suggested she may want to try fish oil for now. Functional Status: Reports: Pain Controlled, Tolerating Diet, Ambulating, Urinating - Review of Systems General: Reports: Weakness (mild right leg weakness). Denies: Fever, Fatigue HEENT: Reports: No Symptoms, Ear Pain (right ear), Other (right jaw pain) Pulmonary: Reports: No Symptoms. Denies: Shortness of Breath, Cough Cardiovascular: Reports: Edema (chronic venous insufficiency). Denies: Chest Pain, Palpitations Gastrointestinal: Reports: No Symptoms. Denies: Diarrhea, Nausea, Vomiting Genitourinary: Reports: No Symptoms. Denies: Dysuria, Frequency, Burning, Pain , Urgency Musculoskeletal: Reports: No Symptoms. Denies: Leg Pain Skin: Reports: No Symptoms Neurological: Reports: No Symptoms, Weakness (mild, right leg). Denies: Confusion, Headache, Numbness, Seizure, Syncope, Tingling, Trouble Speaking, Difficulty Walking, Change in Speech Psychiatric: Reports: No Symptoms. Denies: Confusion - Patient Data Vitals - Most Recent: Last Vital Signs Temp 98.8 F 02/18/18 13:09 Pulse 75 02/18/18 13:09 Resp 16 02/18/18 13:09 BP 124/82 02/18/18 13:09 Pulse Ox 98 02/18/18 13:09 Weight - Most Recent: 187 lb 14.4 oz I&O - Last 24 hours: Intake & Output 02/17/18 02/18/18 02/18/18 22:59 06:59 14:59 Intake Total 360 500 120 Output Total 450 Balance 360 50 120 Lab Results - Last 24 hrs: Laboratory Results - last 24 hr 02/17/18 02/17/18 02/17/18 Range/Units 14:02 14:12 14:12 WBC 4.08 (3.98-10.04) K/mm3 RBC 5.09 (3.98-5.22) M/mm3 Hgb 14.2 (11.2-15.7) gm/L Hct 44.4 (34.1-44.9) % MCV 87.2 (79.4-94.8) fl MCH 27.9 (25.6-32.2) pg MCHC 32.0 L (32.2-35.5) g/dl RDW Std Deviation 45.2 (36.4-46.3) fL Plt Count 191 (182-369) K/mm3 MPV 8.7 L (9.4-12.3) fl Neut % (Auto) (34.0-71.1) % Lymph % (Auto) (19.3-51.7) % [place] % (Auto) (4.7-12.5) % Eos % (Auto) (0.7-5.8) Baso % (Auto) (0.1-1.2) % Neut # (Auto) (1.56-6.13) K/mm3 Lymph # (Auto) (1.18-3.74) K/mm3 [place] # (Auto) (0.24-0.36) K/mm3 Eos # (Auto) (0.04-0.36) K/mm3 Baso # (Auto) (0.01-0.08) K/mm3 Neutrophils % (Manual) 56 (40-60) % Band Neutrophils % 0 (0-10) % Lymphocytes % (Manual) 28 (20-40) % Atypical Lymphs % 5 % Monocytes % (Manual) 11 H (2-10) % Eosinophils % (Manual) 0 L (0.7-5.8) % Basophils % (Manual) 0 L (0.1-1.2) Platelet Estimate Adequate Plt Morphology Comment Normal RBC Morph Comment Normal PT (9.5-12.1) SECONDS INR APTT (24-31) SECONDS Sodium 145 (136-145) mEq/L Potassium 4.3 (3.5-5.1) mEq/L Chloride 110 H (98-107) mEq/L Carbon Dioxide 26 (21-32) mEq/L Anion Gap 13.3 (5-15) BUN 19 H (7-18) mg/dL Creatinine 0.7 (0.55-1.02) mg/dL Est Cr Clr Drug Dosing TNP Estimated GFR (MDRD) > 60 (>60) mL/min BUN/Creatinine Ratio 27.1 H (14-18) Glucose 101 (83-115) mg/dL POC Glucose 90 (83-110) mg/dL Hemoglobin A1c (4.50-6.20) % Calcium 8.8 (8.5-10.1) mg/dL Magnesium (1.8-2.4) mg/dl Total Bilirubin 0.9 (0.2-1.0) mg/dL AST 20 (15-37) U/L ALT 25 (14-59) U/L Alkaline Phosphatase 53 (46-116) U/L Troponin I (0.00-0.056) ng/mL NT-Pro-B Natriuret Pep (0-125) pg/mL Total Protein 6.2 L (6.4-8.2) g/dl Albumin 3.6 (3.4-5.0) g/dl Globulin 2.6 gm/dL Albumin/Globulin Ratio 1.4 (1-2) Triglycerides (<150) mg/dL Cholesterol (<200) mg/dL LDL Cholesterol Direct (<100) mg/dL HDL Cholesterol (40-59) mg/dL Free T4 (0.76-1.46) ng/dL TSH 3rd Generation (0.358-3.74) uIU/mL 02/17/18 02/17/18 02/18/18 Range/Units 14:12 14:12 06:00 WBC 3.30 L (3.98-10.04) K/mm3 RBC 4.89 (3.98-5.22) M/mm3 Hgb 14.1 (11.2-15.7) gm/L Hct 42.8 (34.1-44.9) % MCV 87.5 (79.4-94.8) fl MCH 28.8 (25.6-32.2) pg MCHC 32.9 (32.2-35.5) g/dl RDW Std Deviation 45.1 (36.4-46.3) fL Plt Count 164 L (182-369) K/mm3 MPV 9.1 L (9.4-12.3) fl Neut % (Auto) 46.7 (34.0-71.1) % Lymph % (Auto) 37.3 (19.3-51.7) % [place] % (Auto) 12.4 (4.7-12.5) % Eos % (Auto) 3.3 (0.7-5.8) Baso % (Auto) 0.3 (0.1-1.2) % Neut # (Auto) 1.54 L (1.56-6.13) K/mm3 Lymph # (Auto) 1.23 (1.18-3.74) K/mm3 [place] # (Auto) 0.41 H (0.24-0.36) K/mm3 Eos # (Auto) 0.11 (0.04-0.36) K/mm3 Baso # (Auto) 0.01 (0.01-0.08) K/mm3 Neutrophils % (Manual) (40-60) % Band Neutrophils % (0-10) % Lymphocytes % (Manual) (20-40) % Atypical Lymphs % % Monocytes % (Manual) (2-10) % Eosinophils % (Manual) (0.7-5.8) % Basophils % (Manual) (0.1-1.2) Platelet Estimate Plt Morphology Comment RBC Morph Comment PT 10.7 (9.5-12.1) SECONDS INR 0.98 APTT 28 (24-31) SECONDS Sodium (136-145) mEq/L Potassium (3.5-5.1) mEq/L Chloride (98-107) mEq/L Carbon Dioxide (21-32) mEq/L Anion Gap (5-15) BUN (7-18) mg/dL Creatinine (0.55-1.02) mg/dL Est Cr Clr Drug Dosing Estimated GFR (MDRD) (>60) mL/min BUN/Creatinine Ratio (14-18) Glucose (83-115) mg/dL POC Glucose (83-110) mg/dL Hemoglobin A1c (4.50-6.20) % Calcium (8.5-10.1) mg/dL Magnesium 2.3 (1.8-2.4) mg/dl Total Bilirubin (0.2-1.0) mg/dL AST (15-37) U/L ALT (14-59) U/L Alkaline Phosphatase (46-116) U/L Troponin I (0.00-0.056) ng/mL NT-Pro-B Natriuret Pep (0-125) pg/mL Total Protein (6.4-8.2) g/dl Albumin (3.4-5.0) g/dl Globulin gm/dL Albumin/Globulin Ratio (1-2) Triglycerides (<150) mg/dL Cholesterol (<200) mg/dL LDL Cholesterol Direct (<100) mg/dL HDL Cholesterol (40-59) mg/dL Free T4 (0.76-1.46) ng/dL TSH 3rd Generation (0.358-3.74) uIU/mL 02/18/18 02/18/18 02/18/18 Range/Units 06:00 06:00 06:00 WBC (3.98-10.04) K/mm3 RBC (3.98-5.22) M/mm3 Hgb (11.2-15.7) gm/L Hct (34.1-44.9) % MCV (79.4-94.8) fl MCH (25.6-32.2) pg MCHC (32.2-35.5) g/dl RDW Std Deviation (36.4-46.3) fL Plt Count (182-369) K/mm3 MPV (9.4-12.3) fl Neut % (Auto) (34.0-71.1) % Lymph % (Auto) (19.3-51.7) % [place] % (Auto) (4.7-12.5) % Eos % (Auto) (0.7-5.8) Baso % (Auto) (0.1-1.2) % Neut # (Auto) (1.56-6.13) K/mm3 Lymph # (Auto) (1.18-3.74) K/mm3 [place] # (Auto) (0.24-0.36) K/mm3 Eos # (Auto) (0.04-0.36) K/mm3 Baso # (Auto) (0.01-0.08) K/mm3 Neutrophils % (Manual) (40-60) % Band Neutrophils % (0-10) % Lymphocytes % (Manual) (20-40) % Atypical Lymphs % % Monocytes % (Manual) (2-10) % Eosinophils % (Manual) (0.7-5.8) % Basophils % (Manual) (0.1-1.2) Platelet Estimate Plt Morphology Comment RBC Morph Comment PT (9.5-12.1) SECONDS INR APTT (24-31) SECONDS Sodium 142 (136-145) mEq/L Potassium 3.7 (3.5-5.1) mEq/L Chloride 110 H (98-107) mEq/L Carbon Dioxide 25 (21-32) mEq/L Anion Gap 10.7 (5-15) BUN 14 (7-18) mg/dL Creatinine 0.8 (0.55-1.02) mg/dL Est Cr Clr Drug Dosing 60.38 Estimated GFR (MDRD) > 60 (>60) mL/min BUN/Creatinine Ratio 17.5 (14-18) Glucose 108 (83-115) mg/dL POC Glucose (83-110) mg/dL Hemoglobin A1c 5.30 (4.50-6.20) % Calcium 8.7 (8.5-10.1) mg/dL Magnesium (1.8-2.4) mg/dl Total Bilirubin (0.2-1.0) mg/dL AST (15-37) U/L ALT (14-59) U/L Alkaline Phosphatase (46-116) U/L Troponin I < 0.017 (0.00-0.056) ng/mL NT-Pro-B Natriuret Pep 72 (0-125) pg/mL Total Protein (6.4-8.2) g/dl Albumin (3.4-5.0) g/dl Globulin gm/dL Albumin/Globulin Ratio (1-2) Triglycerides 43 (<150) mg/dL Cholesterol 162 (<200) mg/dL LDL Cholesterol Direct 102 H* (<100) mg/dL HDL Cholesterol 55.0 (40-59) mg/dL Free T4 0.77 (0.76-1.46) ng/dL TSH 3rd Generation 3.144 (0.358-3.74) uIU/mL Med Orders - Current: Current Medications Acetaminophen (Tylenol) 650 mg PO Q4H PRN PRN Reason: Pain (Mild 1-3)/fever Last Admin: 02/18/18 04:05 Dose: 650 mg Hydrocodone Bitart/Acetaminophen ([place] 325-5 Mg) 1 tab PO Q4H PRN PRN Reason: Pain (moderate 4-6) Aspirin (Aspirin) 81 mg PO DAILY [facility] Last Admin: 02/18/18 08:19 Dose: 81 mg Bisacodyl (Dulcolax) 5 mg PO DAILY PRN PRN Reason: Constipation Docusate Sodium (Colace) 100 mg PO BID PRN PRN Reason: Constipation Hydromorphone HCl (Dilaudid) 0.25 mg IVPUSH Q2H PRN PRN Reason: Pain (severe 7-10) Magnesium Hydroxide (Milk Of Magnesia) 30 ml PO Q12H PRN PRN Reason: Constipation Ondansetron HCl (Zofran Odt) 4 mg PO Q4H PRN PRN Reason: nausea, able to take PO Ondansetron HCl (Zofran) 4 mg IV Q4H PRN PRN Reason: Nausea/Vomiting Nature-Throid 65 Mg 0 each PO DAILY [facility] Last Admin: 02/18/18 08:42 Dose: 1 each Polyethylene Glycol (Miralax) 17 gm PO DAILY PRN PRN Reason: Constipation Senna/Docusate Sodium (Senna Plus) 1 tab PO BID PRN PRN Reason: Constipation Sodium Chloride (Saline Flush) 10 ml FLUSH ONETIME PRN PRN Reason: Keep Vein Open Last Admin: 02/18/18 10:48 Dose: 10 ml Temazepam (Restoril) 7.5 mg PO BEDTIME PRN PRN Reason: Sleep Discontinued Medications Aspirin (Aspirin) 81 mg PO ONETIME ONE Stop: 02/17/18 14:42 Last Admin: 02/17/18 14:52 Dose: 81 mg Gadobenate Dimeglumine (Multihance) 20 ml IVPUSH ONETIME ONE Stop: 02/18/18 10:46 Last Admin: 02/18/18 10:48 Dose: 20 ml Sodium Chloride (Normal Saline) 500 mls @ 999 mls/hr IV ONETIME ONE Stop: 02/18/18 08:00 Sodium Chloride (Normal Saline) 500 mls @ 999 mls/hr IV ONETIME ONE Stop: 02/18/18 08:30 Last Admin: 02/18/18 08:13 Dose: 999 mls/hr Thyroid ([place] Thyroid) 60 mg PO DAILY JOSE MARIA - Exam Quality Assessment: Reports: DVT Prophylaxis General: Reports: Alert, Oriented, Cooperative, No Acute Distress HEENT: Reports: Pupils Equal, Pupils Reactive, EOMI, Mucous Membr. Moist/[place], Other (EACs and TMs clear and no erythema, cone of light visualized) Neck: Reports: Supple. Denies: Lymphadenopathy (Submandibular area TTP) Lungs: Reports: Clear to Auscultation, Normal Respiratory Effort Cardiovascular: Reports: Regular Rate, Regular Rhythm GI/Abdominal Exam: Normal Bowel Sounds, Soft, Non-Tender, No Organomegaly, No Distention, No Abnormal Bruit, No Mass, Pelvis Stable (Female) Exam: Deferred Rectal (Female) Exam: Deferred Back Exam: Reports: Normal Inspection, Full Range of Motion Extremities: Normal Inspection, Normal Range of Motion, Non-Tender, Normal Capillary Refill, Pedal Edema (1+ pitting bilaterally), Other (Varicose vein on lower right leg). No: Leg Pain Skin: Reports: Warm, Dry, Intact Neurological: Reports: No New Focal Deficit, Normal Speech, Normal Tone, Sensation Intact, Cranial Nerves Intact (grossly) Psy/Mental Status: Reports: Alert, Normal Affect, Normal Mood
--- NOTE | 2018-02-18 15:10 | MR ---
MR angiogram of neck Technique: [id number] MR angiogram study was obtained centered to the carotid bifurcation. Post-gadolinium MR angiogram study also obtained through the neck. Multiple MIP images were obtained. Findings: Carotid bulbs/carotid bifurcation appears within normal limits. Common carotid arteries appear within normal limits. Vertebral artery shows no stenosis. Internal carotid artery shows no stenosis. Impression: 1. No abnormality is seen on MR angiogram study of the neck. Diagnostic code #1 I agree with preliminary report from [facility], finalized at 02/18/18, 2:01 PM Central Time
--- NOTE | 2018-02-18 15:10 | MR ---
MRI brain (without and with intravenous contrast) Technique: T1 sagittal; T2, T2 FLAIR, T1 and gradient echo axial as well as diffusion axial; T1 FLAIR coronal images were obtained. Post-gadolinium axial and post-gadolinium T1 FLAIR coronal images were obtained. Comparison: Prior head CT exam of 02/17/18. Findings: Several mild areas of increased signal are seen within the periventricular white matter which is compatible with small vessel ischemic demyelination change. Small acute diffusion abnormality is seen within the left centrum semi-ovale. This measures about 4 mm in size and is compatible with a small and fairly acute infarct. No abnormal enhancement is seen within the brain parenchyma. No midline shift or mass effect is seen. Normal signal void is seen within the major cerebral arteries within the skull base. Impression: 1. Minimal small vessel ischemic demyelination change. 2. Small 4 mm fairly acute white matter infarct within the left centrum semi-ovale. Increased signal is seen on the FLAIR sequence in this area and this is compatible with non-reversible infarct. 3. No additional abnormality is identified on MRI study of the brain. Diagnostic code #3 I agree with preliminary report from [facility], finalized at 02/18/18, 1:57 PM Central Time
--- NOTE | 2018-02-18 15:10 | MR ---
MR angiogram of brain Technique: [id number] MR angiogram sequence was obtained centered to the [place] of [place]. Multiple reconstructed MIP images were obtained. Comparison: No prior intracranial imaging. Findings: Distal vertebral arteries and basilar artery are patent. Distal internal carotid arteries are patent. Normal MCA, ANDRES and RIGHT OF WAY SUPERVISOR is seen. No focal stenosis is seen. No discrete aneurysm is identified. Impression: 1. No abnormality is identified on MR angiogram study centered to the [place] of [place]. Diagnostic code #1 I agree with preliminary report from [facility], finalized at 02/18/18, 12:57 PM Central Time
== END 2018-02-18 16:07 | disposition home or self-care (01) ==
LOC: JD.ED 13:58 → JD.MS 15:37
PROVIDERS: ADMIT Internal Medicine; ATTEND Internal Medicine
DX: I63.9 Cerebral infarction, unspecified (principal); E03.9 Hypothyroidism, unspecified; G81.91 Hemiplegia, unspecified affecting right dominant side; R29.700 NIHSS score 0; I83.91 Asymptomatic varicose veins of right lower extremity; M19.90 Unspecified osteoarthritis, unspecified site; Z90.89 Acquired absence of other organs; Z79.899 Other long term (current) drug therapy; Z79.82 Long term (current) use of aspirin; Z88.1 Allergy status to other antibiotic agents; Z88.2 Allergy status to sulfonamides; Z90.49 Acquired absence of other specified parts of digestive tract
CPT/HCPCS: 36415; 70450; 70544; 70549; 70553; 80048; 80053; 80061; 82962; 83036; 83735; 83880; 84439; 84443; 84484; 85007; 85025; 85027; 85610; 85730; 93005; 93306; 97110; 97161; 97165; 99285; A9270; A9577; J7040; J7050

== ENCOUNTER 2023-07-07 09:20 | Emergency (ER) | payer MEDICARE, BC ==
[2023-07-07 10:08] LABS: BASOPHILS PERCENT AUTO 0.9 % (0.0-1.0); EOSINOPHILS ABSOLUTE AUTO 0.1 K/mm3 (0.0-0.4); EOSINOPHILS PERCENT AUTO 3.6 % (0.0-6.0); HEMATOCRIT 45.4 % (37.0-47.0); IMMATURE GRAN ABSOLUTE AUTO 0.01 K/mm3 (0.00-0.05); IMMATURE GRAN PERCENT AUTO 0.3 % (0.0-0.4); LYMPHOCYTES ABSOLUTE AUTO 1.1 K/mm3 (1.0-4.8); LYMPHOCYTES PERCENT AUTO 33.4 % (24.0-44.0); MEAN CORPUSCULAR HEMOGLOBIN 29.1 pg (28.0-32.0); MONOCYTES ABSOLUTE AUTO 0.4 K/mm3 (0.0-0.8); MONOCYTES PERCENT AUTO 10.7 % (0.0-8.0); NEUTROPHILS ABSOLUTE AUTO 1.7 K/mm3 (1.8-7.7); NEUTROPHILS PERCENT AUTO 51.1 % (41.0-71.0); PLATELET COUNT,PLT 192 K/mm3 (150-400); RED BLOOD CELL COUNT 5.16 M/mm3 (4.10-5.30); WHITE BLOOD CELL COUNT,WBC 3.35 K/mm3 (3.9-11.3)
[2023-07-07 10:13] LABS: APPEARANCE,URINE CLEAR (Clear); BILIRUBIN,URINE NEGATIVE (Negative); COLOR,URINE YELLOW (Yellow); GLUCOSE,URINE NEGATIVE (Negative); KETONES,URINE NEGATIVE (Negative); LEUKOCYTE ESTERASE,URINE 1+ (Negative); NITRITE,URINE NEGATIVE (Negative); OCCULT BLOOD,URINE NEGATIVE (Negative); PH,URINE 7.5 (5.0-8.0); PROTEIN,URINE NEGATIVE (Negative); UROBILINOGEN,URINE 0.2 (0.2-1.0)
[2023-07-07 10:18] LABS: A/G RATIO 1.2 (1-2); ALBUMIN 3.6 g/dl (3.4-5.0); ANION GAP 12.1 (5-15); BILIRUBIN TOTAL 1.3 mg/dL (0.2-1.0); BUN/CREATININE RATIO 27.5 (14-18); CALCIUM 9.3 mg/dL (8.5-10.1); CREATININE 0.8 mg/dL (0.55-1.02); EST CRCL DRUG DOSING (CG) 53.83 mL/min; POTASSIUM,K 4.1 mEq/L (3.5-5.1); PROTEIN TOTAL,TP 6.6 g/dl (6.4-8.2)
[2023-07-07 10:54] LABS: BACTERIA,URINE RARE /hpf (FEW); EPITHELIAL CELLS,URINE 0-5 /hpf (0-5); RBC,URINE 0-5 /hpf (0-5); WBC,URINE 0-5 /hpf (0-5)
[2023-07-07 10:55] LABS: MUCUS,URINE NOT SEEN /hpf (FEW)
[2023-07-07] MEDS ORDERED: Meclizine 25 MG Tab PO ONE (11:02)
[2023-07-07 11:43] VITALS: BP 143/96; PULSE 72
== END 2023-07-07 11:38 | disposition home or self-care (01) ==
LOC: JD.ED 09:20
DX: H83.02 Labyrinthitis, left ear (principal); E03.9 Hypothyroidism, unspecified; Z88.1 Allergy status to other antibiotic agents; Z88.2 Allergy status to sulfonamides; Z79.82 Long term (current) use of aspirin; Z79.899 Other long term (current) drug therapy
CPT/HCPCS: 36415; 70450; 80053; 81001; 82947; 85025; 93005; 99284; A9270; 93010; 99283